=== PATIENT | female | born 1985 | race Hispanic/Latino ===

== ENCOUNTER 2017-11-11 02:50 | Outpatient (CLI) | payer OTHER, MEDICAID ==
[2017-11-11 03:05] VITALS: BP 123/79
== END 2017-11-11 04:17 | disposition home or self-care (01) ==
LOC: TRG 02:50
PROVIDERS: ATTEND Obstetrics & Gynecology
DX: O47.1 False labor at or after 37 completed weeks of gestation (principal); O99.283 Endocrine, nutritional and metabolic diseases complicating pregnancy, third trimester; E03.9 Hypothyroidism, unspecified; Z3A.40 40 weeks gestation of pregnancy; Z91.018 Allergy to other foods
CPT/HCPCS: 59025

== ENCOUNTER 2017-11-17 08:25 | Inpatient (IN) | payer OTHER, MEDICAID ==
--- NOTE | 2017-11-17 10:56 | Ultrasound Report ---
ULTRASOUND OB LIMITED History: LOF Technique: Transabdominal ultrasound with Doppler interrogation. Gestation: Single Position: Cephalic Amniotic Fluid: Normal RHONDA = 14.7 cm Heart Rate: 124 BPM
--- NOTE | 2017-11-17 10:57 | Ultrasound Report ---
ULTRASOUND BIOPHYSICAL PROFILE: History: LOF Technique: Transabdominal ultrasound with Doppler interrogation. 0 - breathing movements 2 - movements 2 - posture and tone 2 - Qualitative amniotic fluid volume 6 - TOTAL SCORE OF POSSIBLE 8 Heart Rate (bpm) 126
[2017-11-17] MEDS ORDERED: LACTATED RINGERS 1,000 ML ONE (12:47)
[2017-11-17] MEDS ORDERED: SUBLIMAZE ONE (12:48)
[2017-11-17] MEDS ORDERED: SUBLIMAZE IV PRN (13:04)
[2017-11-17] MEDS ORDERED: ZOFRAN IV PRN (13:04)
[2017-11-17] MEDS ORDERED: XYLOCAINE 2% INFILTRATI ONE (13:04)
[2017-11-17] MEDS ORDERED: MINERAL OIL PO PRN (13:04)
[2017-11-17] MEDS ORDERED: PITOCin/NS 20 UNIT/1000ML DRIP 20 UNITS/1,000 ML BAG IV SCH (13:04)
[2017-11-17] MEDS ORDERED: BRETHINE SUB-Q PRN (13:04)
[2017-11-17] MEDS ORDERED: PITOCin/NS 30 UNIT/500ML 30 UNITS/500 ML BAG IV SCH (13:04)
[2017-11-17 13:22] LABS: Mean Corpuscular HGB Conc 33 % (30-34); Mean Corpuscular Hemoglobin 26 pg (28-32); Mean Corpuscular Volume 79 fl (79-97); Platelet Count 365 K/mm3 (140-440); Red Blood Count 1.97 M/mm3 (3.65-5.03); Red Cell Distribution Width 16.1 % (13.2-15.2)
[2017-11-17 13:31] LABS: Hematocrit 15.5 % (30.3-42.9); Hemoglobin 5.1 gm/dl (10.1-14.3)
[2017-11-17] MEDS ORDERED: POLYCILLIN/NS 2 GM/100 ML 2 GM/100 ML BAG IV ONE (14:00)
--- NOTE | 2017-11-17 14:51 | History and Physical Report ---
History of Present Illness Date of examination: 11/17/17 Date of admission: 11/17/17 08:26 Chief complaint: leaking fluid and labor contractions History of present illness: EDC Calculations 11/09/2017 Past History : 1 Term Births: 0 Premature Births: 0 Living Children: 0 Para: 0 Mult. Births: 0 Prev : 0 Prev. attempt? 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 Past Surgical History: Nasoplasty Breast Augmentation: Family History Summary: Other family member - Has Family History of Ovarian Cancer - Entered On: 2017 Other family member - Has Family History of Hypertension - Entered On: 03/12/2017 Other family member - Has Family History of Hyperlipidemia - Entered On: 2017 Other family member - Has Family History of Coronary Heart Disease - Entered On : 03/12/2017 Other family member - Has Family History Colon Cancer - Entered On: 03/12/2017 Other family member - Has Family History Breast Cancer - Entered On: 03/12/2017 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 of genital herpes: yes Partner hx. of genital herpes: yes Genetic History Congenital Heart Defect: Mom: no Dad: no Jaymie Disease: Mom: no Dad: no Thalassemia Mom: no Dad: no Neural Tube Defect Mom: no Dad: no Down's Syndrome Mom: no Dad: no Carlos-Sachs Mom: no Dad: no Sickle Cell Disease/Trait Mom: no Dad: no Hemophilia Mom: no Dad: no Muscular Dystrophy Mom: no Dad: no Cystic Fibrosis Mom: no Dad: no Maya Chorea Mom: no Dad: no Mental Retardation Mom: no Dad: no Fragile X Mom: no Dad: no Other Genetic/Chromosomal Disorder Mom: no Dad: no Child w/other defect Mom: no Dad: no Enviromental Exposures Xray Exposure: no Medication, drug, or alcohol use since LMP: no Chemical/Other Exposure: no Exposure to Cat Liter: yes 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 Active Medications (reviewed today): LEVOTHYROXINE SODIUM 200 MCG ORAL TABLET (LEVOTHYROXINE SODIUM) Current Allergies (reviewed today): No known allergies Past History Past Medical History: thyroid disease Past Surgical History: other (see HPI) 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) Family/Genetic History: other (ee HPI) Social history: no significant social history, - Obstetrical History Expected Date of Delivery: 11/09/17 Actual Gestation: 41 Week(s) 1 Day(s) : 1 Para: 0 Hx # Term Pregnancies: 0 Number of Pregnancies: 0 Spontaneous Abortions: 0 Induced : 0 Number of Living Children: 0 Medications and Allergies Allergies Allergy/AdvReac Type Severity Reaction Status Date / Time tree nut AdvReac Rash Verified 11/11/17 03:15 Home Medications Medication Instructions Recorded Confirmed Last Taken Type Levothyroxine Sodium [Synthroid] 250 mcg PO QDAY 11/17/17 11/17/17 11/17/17 07: 30 History 1 Tablet 1 tab PO QDAY 11/17/17 11/17/17 11/17/17 08:00 History 1 Active Meds: Active Medications Ephedrine Sulfate (Ephedrine Sulfate) 10 mg IV Q2M PRN PRN Reason: Hypotension Fentanyl (Sublimaze) 100 mcg IV Q2H PRN PRN Reason: Labor Pain Ampicillin Sodium (Polycillin/Ns 2 Gm/100 Ml) 2 gm in 100 mls @ 100 mls/hr IV ONCE ONE; Protocol Stop: 11/17/17 14:59 Ampicillin Sodium (Ampicillin/Ns 1 Gm/50 Ml) 1 gm in 50 mls @ 100 mls/hr IV Q4H JONATHON; Protocol Lactated Ringer's (Lactated Ringers) 1,000 mls @ 125 mls/hr IV DIRECT JONATHON Oxytocin/Sodium Chloride (Pitocin/Ns 20 Unit/1000ml Drip) 20 units in 1,000 mls @ 125 mls/hr IV DIRECT JONATHON Oxytocin/Sodium Chloride (Pitocin/Ns 30 Unit/500ml) 30 units in 500 mls @ 4 mls /hr IV TITR JONATHON; Protocol Mineral Oil (Mineral Oil) 30 ml PO QHS PRN PRN Reason: Constipation Ondansetron HCl (Zofran) 4 mg IV Q8H PRN PRN Reason: Nausea And Vomiting Terbutaline Sulfate (Brethine) 0.25 mg SUB-Q ONCE PRN PRN Reason: Hyperstimulation/Hypertonicity Review of Systems All systems: negative - Vital Signs Vital signs: Vital Signs Pulse BP 77 119/78 11/17/17 08:42 11/17/17 08:42 Temp Pulse Resp BP Pulse Ox 98.1 F 85 16 116/72 11/17/17 08:56 11/17/17 12:17 11/17/17 08:56 11/17/17 12:17 - Physical Exam Breasts: Positive: normal Cardiovascular: Regular rate Lungs: Positive: Clear to auscultation, Normal air movement Abdomen: Positive: normal appearance, soft Genitourinary (Female): Positive: normal external genitalia, normal perenium Vulva: both: normal Vagina: Positive: normal moisture Uterus: Positive: normal size, normal contour Adnexa: both: normal Anus/Rectum: Positive: normal perianal skin Extremities: Positive: normal Deep Tendon Reflex Grade: Normal +2 - Obstetrical FHR: category 1 Uterine Contraction Monitor Mode: External Uterine Contraction Frequency (min): 3-5 Uterine Contraction Duration: 60 Uterine Contraction Pattern: Regular Uterine Tone Measurement Phase: Contraction Uterine Contraction Intensity: Mild Results Result Diagrams: 11/17/17 15:00 Abnormal lab results 11/17/17 Range/Units 12:50 WBC 16.1 H (4.5-11.0) K/mm3 RBC 1.97 L (3.65-5.03) M/mm3 Hgb 5.1 L* (10.1-14.3) gm/dl Hct 15.5 L* (30.3-42.9) % MCH 26 L (28-32) pg RDW 16.1 H (13.2-15.2) % All other labs normal. Assessment and Plan 32 y/o @ 41+1 weeks arrived with c/o leaking clear fluid and painful labor contractions. RHONDA 14, BPP 6/8 , FHT in triage with decreased variability. Plan to admit and augment labor. Admission orders in EMR. - Patient Problems (1) 41 weeks gestation of Current Visit: No Status: Acute (2) Non-reassuring status Current Visit: No Status: Acute (3) Anemia Current Visit: Yes Status: Acute (4) Hypothyroid Current Visit: Yes Status: Acute
[2017-11-17] MEDS ORDERED: AMPICILLIN/NS 1 GM/50 ML 1 GM/50 ML BAG IV SCH (15:08)
[2017-11-17 15:19] LABS: Hematocrit 25.6 % (30.3-42.9); Hemoglobin 8.3 gm/dl (10.1-14.3)
[2017-11-17] MEDS ORDERED: NARCAN 2 MG/2 ML IV PRN (15:48)
--- NOTE | 2017-11-17 15:48 | Anesthesia Consultation ---
Anesthesia Consult and Med Hx Date of service: 11/17/17 - Airway Anesthetic Teeth Evaluation: Good ROM Head & Neck: Adequate Mental/Hyoid Distance: Adequate Mallampati Class: Class II Intubation Access Assessment: Probably Good - Pre-Operative Health Status ASA Pre-Surgery Classification: ASA2 Proposed Anesthetic Plan: Epidural, Spinal - Pulmonary Hx Asthma: No COPD: No Hx Pneumonia: No - Cardiovascular System Hx Hypertension: No - Central Nervous System Hx Seizures: No Hx Psychiatric Problems: Yes - Endocrine Hx Renal Disease: No Hx End Stage Renal Disease: No Hx Hypothyroidism: Yes Hx Hyperthyroidism: No - Hematic Hx Anemia: No Hx Sickle Cell Disease: No - Other Systems Hx Alcohol Use: No
--- NOTE | 2017-11-17 15:48 | Event Note ---
Date: 11/17/17 CBC rechecked due to questionable results - initial labs with H&H 07/14 incorrect. repeated .05/24.6. Patient getting ready for epidural.
[2017-11-17] MEDS ORDERED: fentaNYL-BUPIV 2 MCG/ML-0.125% 200 MCG/100 ML BAG EPIDURAL SCH (16:00)
--- NOTE | 2017-11-17 16:33 | Progress Note ---
Assessment and Plan Patient doing well s/p epidural, c/o feeling ctx but they are less intense. Plan to start pitocin augmentation. - Patient Problems (1) 41 weeks gestation of Current Visit: Yes Status: Acute (2) Non-reassuring status Current Visit: Yes Status: Acute Subjective - Subjective Date of service: 11/17/17 Principal diagnosis: IUP @ 41+1 weeks, Labor Patient reports: loss of fluid, contractions (some relief from ctx with epidural ) Objective - Vital Signs Vital Signs: Vital Signs - 12hr 11/17/17 11/17/17 11/17/17 08:42 08:56 09:29 Temperature 98.1 F Pulse Rate 77 78 Respiratory 16 Rate Blood Pressure 119/78 111/71 11/17/17 11/17/17 11/17/17 10:42 12:17 16:01 Temperature Pulse Rate 75 85 83 Respiratory Rate Blood Pressure 116/71 116/72 120/72 11/17/17 11/17/17 11/17/17 16:03 16:05 16:07 Temperature Pulse Rate 80 79 84 Respiratory Rate Blood Pressure 122/63 121/59 112/55 11/17/17 11/17/17 11/17/17 16:09 16:11 16:13 Temperature Pulse Rate 85 79 93 H Respiratory Rate Blood Pressure 117/64 126/68 115/63 11/17/17 11/17/17 11/17/17 16:15 16:17 16:19 Temperature Pulse Rate 85 83 74 Respiratory Rate Blood Pressure 115/53 103/53 108/56 11/17/17 11/17/17 11/17/17 16:21 16:23 16:25 Temperature Pulse Rate 88 82 80 Respiratory Rate Blood Pressure 104/54 109/57 114/59 11/17/17 16:27 Temperature Pulse Rate 90 Respiratory Rate Blood Pressure 112/55 - Exam Breasts: normal Cardiovascular: Regular rate Lungs: Clear to auscultation, Normal air movement Abdomen: Present: normal appearance, soft Vulva: both: normal Uterus: Present: normal FHR: auscultation normal Uterine Contraction Monitor Mode: External Cervical Dilatation: 4 (SROM - clear fluid) Cervical Effacement Percentage: 90 station: -1 Uterine Contraction Frequency (min): 2-3 Uterine Contraction Duration: 60-80 Uterine Contraction Pattern: Regular Uterine Tone Measurement Phase: Contraction Uterine Contraction Intensity: Moderate Extremities: normal Deep Tendon Reflex Grade: Normal +2 - Labs Labs: Abnormal Labs 11/17/17 11/17/17 12:50 15:00 WBC 16.1 H RBC 1.97 L Hgb 5.1 L* 8.3 L D Hct 15.5 L* 25.6 L D MCH 26 L RDW 16.1 H Laboratory Results - last 24 hr 11/17/17 11/17/17 11/17/17 12:50 12:50 15:00 WBC 16.1 H RBC 1.97 L Hgb 5.1 L* 8.3 L D Hct 15.5 L* 25.6 L D MCV 79 MCH 26 L MCHC 33 RDW 16.1 H Plt Count 365 Blood Type AB POSITIVE Antibody Screen Negative 11/17/17 15:00 WBC RBC Hgb Hct MCV MCH MCHC RDW Plt Count 257 Blood Type Antibody Screen
[2017-11-17] MEDS: LACTATED RINGERS 1,000 ML IV SCH ×2 (17:14→19:56)
--- NOTE | 2017-11-17 18:10 | Progress Note ---
Assessment and Plan early variables noted on tracing, SVE now 6.5/100/0 with moderate amount of clear fluid. IUPC placed without difficulty to see ctx intensity. Anticipate - Patient Problems (1) 41 weeks gestation of Current Visit: Yes Status: Acute (2) Non-reassuring status Current Visit: Yes Status: Acute Subjective - Subjective Date of service: 11/17/17 Principal diagnosis: IUP @ 41+1 weeks, Labor Patient reports: no new complaints Objective - Vital Signs Vital Signs: Vital Signs - 12hr 11/17/17 11/17/17 11/17/17 08:42 08:56 09:29 Temperature 98.1 F Pulse Rate 77 78 Respiratory 16 Rate Blood Pressure 119/78 111/71 11/17/17 11/17/17 11/17/17 10:42 12:17 16:01 Temperature Pulse Rate 75 85 83 Respiratory Rate Blood Pressure 116/71 116/72 120/72 11/17/17 11/17/17 11/17/17 16:03 16:05 16:07 Temperature Pulse Rate 80 79 84 Respiratory Rate Blood Pressure 122/63 121/59 112/55 11/17/17 11/17/17 11/17/17 16:09 16:11 16:13 Temperature Pulse Rate 85 79 93 H Respiratory Rate Blood Pressure 117/64 126/68 115/63 11/17/17 11/17/17 11/17/17 16:15 16:17 16:19 Temperature Pulse Rate 85 83 74 Respiratory Rate Blood Pressure 115/53 103/53 108/56 11/17/17 11/17/17 11/17/17 16:21 16:23 16:25 Temperature Pulse Rate 88 82 80 Respiratory Rate Blood Pressure 104/54 109/57 114/59 11/17/17 11/17/17 11/17/17 16:27 16:29 16:31 Temperature Pulse Rate 90 76 75 Respiratory Rate Blood Pressure 112/55 110/56 111/57 11/17/17 11/17/17 11/17/17 16:33 16:35 16:37 Temperature Pulse Rate 81 87 75 Respiratory Rate Blood Pressure 117/56 117/56 110/59 11/17/17 11/17/17 11/17/17 16:39 16:41 16:43 Temperature Pulse Rate 80 85 75 Respiratory Rate Blood Pressure 117/57 121/61 115/58 11/17/17 11/17/17 11/17/17 16:45 16:47 16:49 Temperature Pulse Rate 78 85 77 Respiratory Rate Blood Pressure 117/56 112/59 119/61 11/17/17 11/17/17 11/17/17 16:51 17:07 17:21 Temperature Pulse Rate 76 86 93 H Respiratory Rate Blood Pressure 117/59 118/62 118/62 11/17/17 11/17/17 17:37 17:52 Temperature Pulse Rate 93 H 88 Respiratory Rate Blood Pressure 121/65 109/68 - Exam Breasts: normal Cardiovascular: Regular rate Lungs: Clear to auscultation, Normal air movement Abdomen: Present: normal appearance, soft Vulva: both: normal Uterus: Present: normal FHR: auscultation normal, category 1 Uterine Contraction Monitor Mode: Internal Cervical Dilatation: 6.5 (clear fluid) Cervical Effacement Percentage: 100 station: 0 Uterine Contraction Frequency (min): 2-4 Uterine Contraction Duration: 60 Uterine Contraction Pattern: Regular Uterine Tone Measurement Phase: Contraction Uterine Contraction Intensity: Mild Extremities: normal - Labs Labs: Abnormal Labs 11/17/17 11/17/17 12:50 15:00 WBC 16.1 H RBC 1.97 L Hgb 5.1 L* 8.3 L D Hct 15.5 L* 25.6 L D MCH 26 L RDW 16.1 H Laboratory Results - last 24 hr 11/17/17 11/17/17 11/17/17 12:50 12:50 15:00 WBC 16.1 H RBC 1.97 L Hgb 5.1 L* 8.3 L D Hct 15.5 L* 25.6 L D MCV 79 MCH 26 L MCHC 33 RDW 16.1 H Plt Count 365 Blood Type AB POSITIVE Antibody Screen Negative 11/17/17 15:00 WBC RBC Hgb Hct MCV MCH MCHC RDW Plt Count 257 Blood Type Antibody Screen
[2017-11-17] MEDS ORDERED: XYLOCAINE 2%/ EPI 1:200,000 INFILTRATI ONE (18:57)
--- NOTE | 2017-11-17 22:56 | Procedure Note ---
OB Delivery Note - Delivery Date of Delivery: 11/17/17 ( female) Sales Force Developer: CLEOPATRA GROSSMAN Estimated blood loss: 200cc - Vaginal Delivery presentation: vertex Delivery position: OA Intrapartum events: none Delivery induction: none Delivery augmentation: pitocin Delivery monitor: external FHT, internal uterine Route of delivery: Delivery placenta: spontaneous Delivery cord: nuchal cord, 3 umbilical vessels Episiotomy: none Delivery laceration: none Anesthesia: epidural Delivery comments: Female del over intact perineum, nuchal cord x 1 - somersaulted through. Infant placed skin to skin on mother's abdomen. 3 vessel cord clamped and cut. Placenta del intact and complete. Pit to IVF. No lacerations. Apgars 8/ 9, EBL 200, wt 8#12. Mother and infant remain LDR stable. - A at 1 minute: 8 at 5 minutes: 9 Infant Gender: Female (8#12, Alicia)
[2017-11-18] MEDS ORDERED: BENADRYL PO PRN (00:55)
[2017-11-18] MEDS ORDERED: NORCO 5/325 PO PRN (00:55)
[2017-11-18] MEDS ORDERED: PHENERGAN PO PRN (00:55)
[2017-11-18] MEDS ORDERED: PITOCin/NS 20 UNIT/1000ML DRIP 20 UNITS/1,000 ML BAG IV SCH (00:55)
[2017-11-18] MEDS ORDERED: SODIUM CHLORIDE FLUSH SYRINGE 10 ML IV PRN (00:55)
[2017-11-18] MEDS ORDERED: DULCOLAX PR PRN (00:55)
[2017-11-18] MEDS ORDERED: LANSINOH TP PRN (00:55)
[2017-11-18] MEDS ORDERED: DERMOPLAST TP PRN (00:55)
[2017-11-18] MEDS ORDERED: MILK OF MAGNESIA PO PRN (00:55)
[2017-11-18] MEDS ORDERED: TUCKS PAD TP PRN (00:55)
[2017-11-18] MEDS ORDERED: TYLENOL PO PRN (00:55)
[2017-11-18] MEDS: MOTRIN PO SCH ×4 (01:24→23:45)
--- NOTE | 2017-11-18 07:21 | Progress Note ---
Assessment and Plan - Patient Problems (1) (normal spontaneous vaginal delivery) Onset Date: ~11/17/17 Current Visit: Yes Status: Acute Plan to address problem: No c/o VSS FF below umb Lochia small perineum intact H&H pending Stable s/p vag del P: continue pathway D/C tomorrow Subjective - Subjective Date of service: 11/18/17 (pt OOB caring for NB) Principal diagnosis: Patient reports: appetite normal, voiding normally, pain well controlled, ambulating normally : doing well Objective - Vital Signs Latest vital signs: Vital Signs Temp Pulse Resp BP Pulse Ox 11/18/17 05:39 98.3 F 81 18 106/53 97 11/18/17 00:50 97.9 F 73 18 113/64 96 11/18/17 00:01 87 127/60 11/17/17 23:00 98.3 F 11/17/17 22:13 74 137/73 11/17/17 21:59 76 133/69 11/17/17 21:44 78 132/65 11/17/17 21:29 82 129/65 11/17/17 21:14 82 127/61 11/17/17 20:58 75 119/56 11/17/17 20:43 83 124/59 11/17/17 20:28 88 135/65 11/17/17 20:15 88 131/63 11/17/17 19:58 84 96/51 11/17/17 19:55 92 H 112/59 11/17/17 19:52 85 114/65 11/17/17 19:49 86 119/56 11/17/17 19:46 100 H 100/53 18 19:43 98 H 107/56 11/17/17 19:40 85 105/54 11/17/17 19:37 86 107/54 18 19:34 78 104/53 11/17/17 19:31 86 98/52 11/17/17 19:28 86 110/53 18 19:25 88 106/53 11/17/17 19:22 81 109/55 11/17/17 19:19 88 112/56 11/17/17 19:15 98.1 F 18 11/17/17 19:13 96 H 142/76 09/18/18 19:11 95 H 124/90 09/18/18 19:07 88 137/65 09/18/18 19:04 88 131/68 09/18/18 19:02 92 H 139/74 09/18/18 19:01 75 138/68 09/18/18 18:58 81 133/64 09/18/18 18:57 82 138/82 09/18/18 18:51 76 133/75 09/18/18 18:37 88 136/76 09/18/18 18:21 87 135/73 09/18/18 18:07 91 H 133/69 09/18/18 17:52 88 109/68 09/18/18 17:37 93 H 121/65 09/18/18 17:21 93 H 118/62 09/18/18 17:07 86 118/62 09/18/18 16:51 76 117/59 09/18/18 16:49 77 119/61 09/18/18 16:47 85 112/59 09/18/18 16:45 78 117/56 09/18/18 16:43 75 115/58 09/18/18 16:41 85 121/61 09/18/18 16:39 80 117/57 09/18/18 16:37 75 110/59 09/18/18 16:35 87 117/56 09/18/18 16:33 81 117/56 09/18/18 16:31 75 111/57 09/18/18 16:29 76 110/56 09/18/18 16:27 90 112/55 09/18/18 16:25 80 114/59 09/18/18 16:23 82 109/57 09/18/18 16:21 88 104/54 09/18/18 16:19 74 108/56 09/18/18 16:17 83 103/53 /18/18 16:15 85 115/53 09/18/18 16:13 93 H 115/63 09/18/18 16:11 79 126/68 09/18/18 16:09 85 117/64 09/18/18 16:07 84 112/55 09/18/18 16:05 79 121/59 09/18/18 16:03 80 122/63 09/18/18 16:01 83 120/72 09/18/18 12:17 85 116/72 11/17/17 10:42 75 116/71 11/17/17 09:29 78 111/71 11/17/17 08:56 98.1 F 16 11/17/17 08:42 77 119/78 Intake and Output 11/17/17 11/18/17 11/18/17 22:59 06:59 14:59 Intake Total 339.5 300 Output Total 800 900 Balance -460.5 -600 Intake: IV 339.5 Lactated Ringers 1,000 ml 337.5 @ 125 mls/hr IV DIRECT JONATHON Rx#:[id number] PITOCin/NS 30 UNIT/500ML 2 30 units In 500 ml @ 4 mls/hr IV TITR JONATHON Rx#: [id number] Oral 300 Output: Urine 800 900 Indwelling Catheter 800 Void 900 Other: Total, Intake Amount 200 Total, Output Amount 800 500 Estimated Blood Loss 200 - Exam Breasts: Present: normal Cardiovascular: Present: Regular rate Lungs: Present: Normal air movement Abdomen: Present: normal appearance, soft Uterus: Present: normal, fundal height below umbilicus Extremities: Present: normal Deep Tendon Reflex Grade: Normal +2 Incision: Present: normal, dry, intact - Labs Labs: Abnormal lab results 11/17/17 11/17/17 Range/Units 12:50 15:00 WBC 16.1 H (4.5-11.0) K/mm3 RBC 1.97 L (3.65-5.03) M/mm3 Hgb 5.1 L* 8.3 L D (10.1-14.3) gm/dl Hct 15.5 L* 25.6 L D (30.3-42.9) % MCH 26 L (28-32) pg RDW 16.1 H (13.2-15.2) %
[2017-11-18] MEDS ORDERED: PRENATAL VITAMIN PO SCH (10:00)
[2017-11-18 11:22] LABS: Hematocrit 24.3 % (30.3-42.9); Hemoglobin 7.8 gm/dl (10.1-14.3)
[2017-11-18] MEDS: COLACE PO SCH ×2 (12:07→22:31)
[2017-11-18] MEDS: FEOSOL PO SCH ×2 (12:07→22:31)
[2017-11-19] MEDS: MOTRIN PO SCH (05:02)
[2017-11-19] MEDS ORDERED: BOOSTRIX IM ONE (06:00)
--- NOTE | 2017-11-19 06:28 | Discharge Summary ---
Providers - Providers Date of Admission: 11/17/17 08:26 Date of discharge: 11/19/17 (pt desires d/c) Attending physician: LEE PERALTA 11/18/17 00:55 Consult to Anaesthetic Technician [CONS] Routine Reason For Exam: assistance with , SNS Primary care physician: LEE PERALTA Hospitalization Reason for admission: rupture of membranes Delivery: Episiotomy: none Laceration: none Incision: normal Other procedures: none complications: none Discharge diagnosis: IUP at term delivered baby: female Hospital course: uncomplicated vaginal delivery Pt A&O X 3 No c/o voiced VSS FF below umb Lochia small Perineum intact Asymptomatic anemia Doing well s/p vag delivery P: d/c today with instructions RTO 4 weeks PP care. Condition at discharge: Good Disposition: DC-01 TO HOME OR SELFCARE - Discharge Diagnoses (1) (normal spontaneous vaginal delivery) Status: Acute Comment: RTO 4 weeks PP care Plan - Provider Discharge Summary Activity: routine, no sex for 6 weeks, no heavy lifting 4 weeks, no strenuous exercise Diet: routine Instructions: routine Additional instructions: [] Smoking cessation referral if applicable(refer to patient education folder for contact #) [] Refer to [facility] Booklet Call your doctor immediately for: * Fever > 100.5 * Heavy vaginal bleeding ( >1 pad per hour) * Severe persistent headache * Shortness of breath * Reddened, hot, painful area to leg or breast * Drainage or odor from incision. * Keep incision clean and dry at all times and follow doctor's instructions regarding bathing/showering - Follow up plan Follow up: LEE PERALTA MD [Primary Care Provider] - 12/18/17 (Congratulations! Please call [phone] to schedule your visit in 4 weeks. Take medications as prescribed. Call with any concerns.)
[2017-11-19 09:17] VITALS: BP 110/63
== END 2017-11-19 12:00 | disposition home or self-care (01) | DRG 775 ==
LOC: TRG 08:25 → LD 08:26 → TRG 11:58 → OB 11-18 01:19
PROVIDERS: ADMIT Obstetrics & Gynecology; ATTEND Obstetrics & Gynecology
PROC: 10E0XZZ Delivery of Products of Conception, External Approach (ICD-10-PCS; principal; 2017-11-17)
PROC: 3E0R3BZ Introduction of Anesthetic Agent into Spinal Canal, Percutaneous Approach (ICD-10-PCS; 2017-11-17)
PROC: 00HU33Z Insertion of Infusion Device into Spinal Canal, Percutaneous Approach (ICD-10-PCS; 2017-11-17)
DX: O69.81X0 Labor and delivery complicated by cord around neck, without compression, not applicable or unspecified (principal); O99.334 Smoking (tobacco) complicating childbirth; F17.200 Nicotine dependence, unspecified, uncomplicated; O76 Abnormality in fetal heart rate and rhythm complicating labor and delivery; O99.02 Anemia complicating childbirth; D64.9 Anemia, unspecified; O99.284 Endocrine, nutritional and metabolic diseases complicating childbirth; E03.9 Hypothyroidism, unspecified; Z3A.41 41 weeks gestation of pregnancy; Z71.6 Tobacco abuse counseling; Z91.018 Allergy to other foods; Z37.0 Single live birth; Z81.1 Family history of alcohol abuse and dependence; Z80.41 Family history of malignant neoplasm of ovary; Z80.3 Family history of malignant neoplasm of breast; Z82.49 Family history of ischemic heart disease and other diseases of the circulatory system
CPT/HCPCS: 36415; 76815; 76819; 84439; 84443; 85014; 85018; 85027; 85049; 86592; 86850; 86900; 86901; 99211; G0463; J0290; J2405; J2590; J3010; J7120